=== PATIENT | female | born 1960 ===

== ENCOUNTER 2025-02-06 06:00 | Day surgery (SDC) | payer OTHER ==
[2025-01-31 13:33] VITALS: BP 143/79
[~2025-02-06] VITALS: Ht 157.5 cm; Wt 83.9 kg
[~2025-02-06 06:00] MED LIST: DAFLONEX-XL 11300 MG PO; LEVOTHYROXINE50 MC1 PO; NASAL MIST126 ML
[2025-02-06] MEDS ORDERED: CEFAZOLIN SODIUM 1,000 MG VIAL ONE (07:20)
[2025-02-06] MEDS ORDERED: LIDOCAINE HCL 1%/EPINEPHRINE 20ML VIAL IJ ONE (07:51)
== END 2025-02-06 13:10 | disposition home or self-care (01) ==
LOC: CIR.AMB 06:00
PROVIDERS: ATTEND Obstetrics & Gynecology Gynecology
DX: N88.4 Hypertrophic elongation of cervix uteri (principal)